=== PATIENT | male | born 1960 | race African-American/Black ===

== ENCOUNTER 2020-01-02 15:25 | Outpatient (CLI) | payer BC ==
--- NOTE | 2020-01-02 16:01 | RAD ---
Exam: 5 views cervical spine HISTORY: Dizziness. FINDINGS: Moderate narrowing of the left neural foramen at C6-C7. Severe right neural foraminal narrowing at C6 -C7. On the AP projection, no malalignment. Soft tissue neck calcifications suggest atherosclerosis. Lateral masses of C1 and C2 articulate appropriately. The base of the odontoid process is intact. The tip is obscured by overlying osseous structures. Predental space is normal. No prevertebral soft tissue swelling. Cervical spine vertebral body heights are maintained. There is no fracture. Mild loss of disc space h eight and osteophyte formation at C3 3-C4. Mild to moderate degenerative loss of disc space height at C5-C6 and C6-C7. IMPRESSION: Degenerative changes of the cervical spine as above. Transcribed Date/Time: 01/02/2020 6:07 PM
== END 2020-01-02 15:26 | disposition home or self-care (01) ==
LOC: NAV LAB 15:25
PROVIDERS: ATTEND Internal Medicine
DX: R42 Dizziness and giddiness (principal); M47.812 Spondylosis without myelopathy or radiculopathy, cervical region
CPT/HCPCS: 72050

== ENCOUNTER 2020-04-24 16:40 | Emergency (ER) | payer BC ==
[2020-04-24] MEDS ORDERED: Ibuprofen 200 MG TAB ONE (16:46)
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
== END 2020-04-24 17:40 | disposition home or self-care (01) ==
LOC: NAV ERS 16:40
DX: S16.1XXA Strain of muscle, fascia and tendon at neck level, initial encounter (principal); S39.012A Strain of muscle, fascia and tendon of lower back, initial encounter; I11.0 Hypertensive heart disease with heart failure; I50.9 Heart failure, unspecified; E78.5 Hyperlipidemia, unspecified; E11.9 Type 2 diabetes mellitus without complications; F17.210 Nicotine dependence, cigarettes, uncomplicated; Z79.82 Long term (current) use of aspirin; Z79.84 Long term (current) use of oral hypoglycemic drugs; Z79.899 Other long term (current) drug therapy; V49.40XA Driver injured in collision with unspecified motor vehicles in traffic accident, initial encounter
CPT/HCPCS: 72125; 72131